=== PATIENT | female | born 1960 | race African-American/Black ===

== ENCOUNTER 2017-09-22 16:05 | Emergency (ER) | payer OTHER ==
[~2017-09-22] VITALS: Ht 170.2 cm; Wt 96.2 kg
[~2017-09-22 16:05] MED LIST: ULTRAM50 MG OR; VICOPROFEN OR
[2017-09-22] MEDS ORDERED: BP MED (16:13)
[2017-09-22] MEDS ORDERED: WATER PILL (16:13)
[2017-09-22 16:40] VITALS: BP 140/80
[2017-09-22] MEDS ORDERED: BACTRIM DS1 TAB PO (16:40)
== END 2017-09-22 16:45 | disposition home or self-care (01) | DRG 603 ==
LOC: ED 16:05
DX: L03.031 Cellulitis of right toe (principal); I10 Essential (primary) hypertension

== ENCOUNTER 2017-10-29 16:59 | Emergency (ER) | payer OTHER ==
[~2017-10-29] VITALS: Ht 170.2 cm; Wt 86.2 kg
[~2017-10-29 16:59] MED LIST changes: +BACTRIM DS1 TAB PO; +BP MED; +WATER PILL
[2017-10-29] MEDS ORDERED: TORADOL PO (18:25)
[2017-10-29 18:33] VITALS: BP 138/88
== END 2017-10-29 18:44 | disposition home or self-care (01) | DRG 556 ==
LOC: ED 16:59
DX: M79.671 Pain in right foot (principal); L53.9 Erythematous condition, unspecified

== ENCOUNTER → 2018-11-21 | Outpatient (REF) | payer OTHER ==
[~2018-11-21] MED LIST changes: +TORADOL PO
== END | disposition home or self-care (01) | DRG 305 ==
LOC: LAB 08:06
PROVIDERS: ATTEND Physician Assistant Medical
DX: I10 Essential (primary) hypertension (principal); E78.5 Hyperlipidemia, unspecified; R73.03 Prediabetes